=== PATIENT | female | born 1960 | race Caucasian/White ===

== ENCOUNTER 2022-03-27 04:34 | Observation (INO) ==
[2022-03-27] MEDS ORDERED: Naloxone 0.4 MG/ML INJ IVP PRN ×2 (07:02→10:57)
[2022-03-27] MEDS ORDERED: Melatonin 3 MG TABLET PO PRN (07:02)
[2022-03-27] MEDS ORDERED: Ipratropium/Albuterol Neb 3 ML IH SCH (10:00)
[2022-03-27] MEDS ORDERED: tiZANidine 4 MG TABLET PO PRN (11:00)
[2022-03-27] MEDS ORDERED: Ipratropium/Albuterol Neb 3 ML IH PRN (11:01)
[2022-03-27] MEDS ORDERED: Metoprolol 100 MG TABLET PO SCH ×2 (11:59→21:00)
[2022-03-27] MEDS ORDERED: DilTIAZem CD (24hr) 120 MG CAP.ER.24H PO SCH (12:00)
[2022-03-27] MEDS ORDERED: Acetaminophen 325 MG TABLET PO PRN ×2 (13:25→15:02)
[2022-03-27 14:55] LABS: Amphetamine Screen,Urine Negative ng/mL (Cutoff=1000); Barbiturate Screen,Urine Negative ng/mL (Cutoff=200); Benzodiazepines Screen,Urine Positive ng/mL (Cutoff=200); Cannabinoid Screen,Urine Negative ng/mL (Cutoff = 50); Cocaine Screen,Urine Negative ng/mL (Cutoff= 300); Opiate Screen,Urine Negative ng/mL (Cutoff=300); Phencyclidine Screen,Urine Negative ng/mL (Cutoff=25)
[2022-03-27] MEDS ORDERED: Gabapentin 400 MG CAPSULE PO SCH (15:00)
[2022-03-27] MEDS ORDERED: hydrOXYzine pamoate 25 MG CAPSULE PO PRN (16:28)
[2022-03-27 16:54] VITALS: RESP 16; O2SAT 93
[2022-03-27] MEDS ORDERED: Perflutren Lipid Microsphere 1.3 ML in 0.9 % Sodium Chloride 8.7 ML IVP PRN (18:30)
[2022-03-27 19:27] VITALS: BP 118/74; PULSE 86; TEMP 98
[2022-03-27] MEDS ORDERED: Famotidine 20 MG TABLET PO SCH (21:00)
[2022-03-27] MEDS ORDERED: Nicotine 21 MG PATCH.TD24 TD SCH (21:00)
[2022-03-27] MEDS ORDERED: MethylPREDNISolone 40 MG/ML VIAL IVP SCH (21:00)
[2022-03-27] MEDS ORDERED: Budesonide/Formoterol 160/4.5 1 PUFF INH IH SCH (22:00)
[2022-03-28] MEDS ORDERED: *HR* Enoxaparin 40 MG/0.4 ML SYRINGE SQ SCH (06:00)
[2022-03-28] MEDS ORDERED: levoFLOXacin 750 MG TABLET PO ONE (08:00)
[2022-03-28] MEDS ORDERED: Cyanocobalamin (B-12) 1,000 MCG TABLET PO SCH (09:00)
[2022-03-28] MEDS ORDERED: Cholecalciferol (D-3) 1,000 UNIT (25MCG) TABLET PO SCH (09:00)
[2022-03-28] MEDS ORDERED: levoFLOXacin 750 MG TABLET PO SCH (09:00)
[2022-03-28] MEDS ORDERED: MethylPREDNISolone 40 MG/ML VIAL IVP SCH (09:00)
[2022-03-28] MEDS ORDERED: DilTIAZem CD (24hr) 120 MG CAP.ER.24H PO SCH (09:00)
[2022-03-28] MEDS ORDERED: Furosemide 20 MG TABLET PO SCH (09:00)
== END 2022-03-27 20:00 | disposition left against medical advice (07) ==
LOC: INPGRE
PROVIDERS: ADMIT Internal Medicine; ATTEND Internal Medicine